=== PATIENT | female | born 1980 | race Caucasian/White ===

== ENCOUNTER 2019-12-13 05:41 | Emergency (ER) | payer MEDICAID, OTHER ==
[~2019-12-13] VITALS: Ht 167.6 cm; Wt 117.9 kg
[~2019-12-13 05:41] MED LIST: ATEN-60; DIVA125T12; LEVO25TA6; QUET25TA37; TOPI25TA32
[2019-12-13 06:18] VITALS: BP 124/75
== END 2019-12-13 07:02 | disposition left against medical advice (07) ==
LOC: ER 05:41
DX: M79.89 Other specified soft tissue disorders (principal); Z53.21 Procedure and treatment not carried out due to patient leaving prior to being seen by health care provider

== ENCOUNTER 2021-04-06 10:20 | Emergency (ER) | payer MEDICAID ==
[~2021-04-06] VITALS: Ht 167.6 cm; Wt 113.4 kg
[~2021-04-06 10:20] MED LIST changes: -TOPI25TA32; +TOPI25TA43
[2021-04-06 10:31] VITALS: BP 153/71
[2021-04-06] MEDS ORDERED: SODIUM CHLORIDE 0.9% 1,000 ML IVB ONE (11:30)
[2021-04-06] MEDS ORDERED: PANTOPRAZOLE 40 MG/10 ML VIAL INJ IV ONE (11:30)
[2021-04-06] MEDS ORDERED: ONDANSETRON HCL 4 MG/2 ML VIAL IV ONE (11:30)
[2021-04-06 13:38] LABS: Urine Bacteria NONE SEEN /hpf (None Seen); Urine Blood Negative /uL (Negative); Urine Mucus FEW (None Seen); Urine Specific Gravity 1.034 (1.001-1.035); Urine WBC 2 /hpf (0 - 5)
== END 2021-04-06 14:59 | disposition home or self-care (01) ==
LOC: ER 10:20
DX: R10.13 Epigastric pain (principal); F12.188 Cannabis abuse with other cannabis-induced disorder; J45.909 Unspecified asthma, uncomplicated; I10 Essential (primary) hypertension; F17.210 Nicotine dependence, cigarettes, uncomplicated
CPT/HCPCS: 81001

== ENCOUNTER 2021-09-10 11:49 | Inpatient (IN) | payer MEDICAID ==
[~2021-09-10] VITALS: Ht 167.6 cm; Wt 111.4 kg
[~2021-09-10 11:49] MED LIST changes: -ATEN-60; +ATEN-60 PO
[2021-09-10] MEDS ORDERED: PANTOPRAZOLE 40 MG/10 ML VIAL INJ IV ONE (12:15)
[2021-09-10] MEDS ORDERED: PROCHLORPERAZINE EDISYLATE 5 MG/ML 2ML VIAL IV ONE (12:15)
[2021-09-10] MEDS ORDERED: SODIUM CHLORIDE 0.9% 1,000 ML IVB ONE (12:15)
[2021-09-10] MEDS ORDERED: MORPHINE SULFATE 4 MG/ML SYR/VIAL IV ONE (12:15)
[2021-09-10 13:35] LABS: Basophils # (auto) 0.1 10 ^3/uL (0-0.2); Basophils % (auto) 0.4 % (0.0-2.0); Eosinophils # (auto) 0.1 10 ^3/uL (0-0.8); Eosinophils % (auto) 0.4 % (0.0-7.0); Hematocrit 47.4 % (36.0-46.0); Hemoglobin 16.4 g/dL (12.2-16.2); Lymphocytes # (auto) 3.7 10 ^3/uL (0.4-5.4); Lymphocytes % (auto) 28.5 % (10.0-50.0); Mean Corpuscular Hemoglobin 30.8 pg (28.0-32.0); Mean Corpuscular Hgb Conc. 34.5 g/dL (32.0-36.0); Mean Corpuscular Volume 89.3 fL (80.0-100.0); Monocytes # (auto) 1.2 10 ^3/uL (0-1.3); Monocytes % (auto) 8.9 % (0.0-12.0); Neutrophils # (auto) 8.1 10 ^3/uL (1.6-8.6); Neutrophils % (auto) 61.8 % (37.0-80.0); Nucleated Red Blood Cells % 0.1 %; Red Blood Cells 5.31 10^6/uL (4.0-5.20); White Blood Cell 13.1 10^3/uL (4.4-10.8)
[2021-09-10 13:55] LABS: Albumin 4.4 g/dL (3.4-5.0); Magnesium 2.4 mg/dL (1.6-2.6)
[2021-09-10 13:59] LABS: BUN/Creatinine Ratio 16.9; Bilirubin, Total 2.2 mg/dL (0.2-1.0); Total Protein 8.4 g/dL (6.4-8.2)
[2021-09-10 15:04] LABS: Potassium 2.2 mmol/L (3.5-5.1)
[2021-09-10] MEDS ORDERED: POTASSIUM CHL 20 Meq TABLET PO ONE ×2 (15:15→22:30)
[2021-09-10] MEDS: POTASSIUM CHL 20MEQ/100ML 100 ML IV SCH (18:52)
[2021-09-10] MEDS ORDERED: POTASSIUM CHL 20MEQ/100ML 100 ML IV SCH (21:45)
[2021-09-10] MEDS ORDERED: ACETAMINOPHEN 325 MG TAB PO PRN (22:30)
[2021-09-10] MEDS ORDERED: MORPHINE SULFATE INJECTION 2 MG/ML SYRG IV PRN (22:30)
[2021-09-10] MEDS ORDERED: hydrALAZINE HCL 10 MG TAB PO PRN (22:30)
[2021-09-11] MEDS: SODIUM CHLORIDE 0.9% 1,000 ML IV SCH ×2 (00:20→09:56)
[2021-09-11] MEDS: ONDANSETRON HCL 4 MG/2 ML VIAL IV PRN ×2 (00:37→19:52)
[2021-09-11 01:12] LABS: Urine Blood Trace /uL (Negative); Urine Specific Gravity 1.022 (1.001-1.035)
[2021-09-11 01:17] LABS: Urine WBC 4 /hpf (0 - 5); Urine WBC Clumps NONE SEEN /hpf (None Seen)
[2021-09-11 01:18] LABS: Urine Bacteria NONE SEEN /hpf (None Seen)
[2021-09-11] MEDS ORDERED: POTASSIUM CHL 20MEQ/100ML 100 ML IV ONE (02:12)
[2021-09-11] MEDS: POTASSIUM CHL 20MEQ/100ML 100 ML IV SCH (02:20)
[2021-09-11 05:47] LABS: Basophils # (auto) 0 10 ^3/uL (0-0.2); Basophils % (auto) 0.3 % (0.0-2.0); Eosinophils # (auto) 0.1 10 ^3/uL (0-0.8); Eosinophils % (auto) 0.8 % (0.0-7.0); Hematocrit 38.2 % (36.0-46.0); Hemoglobin 13.5 g/dL (12.2-16.2); Lymphocytes # (auto) 3.2 10 ^3/uL (0.4-5.4); Lymphocytes % (auto) 29.6 % (10.0-50.0); Mean Corpuscular Hemoglobin 31.6 pg (28.0-32.0); Mean Corpuscular Hgb Conc. 35.2 g/dL (32.0-36.0); Mean Corpuscular Volume 89.8 fL (80.0-100.0); Monocytes % (auto) 9.3 % (0.0-12.0); Neutrophils # (auto) 6.4 10 ^3/uL (1.6-8.6); Nucleated Red Blood Cells % 0.1 %; Red Blood Cells 4.26 10^6/uL (4.0-5.20); Red Cell Distribution Width 14.1 % (11.8-14.3); White Blood Cell 10.7 10^3/uL (4.4-10.8)
[2021-09-11 06:01] LABS: BUN/Creatinine Ratio 16.5; Calcium 8.4 mg/dL (8.5-10.1)
[2021-09-11 07:30] LABS: Potassium 2.5 mmol/L (3.5-5.1)
[2021-09-11] MEDS ORDERED: PANTOPRAZOLE 40 MG/10 ML VIAL INJ IV SCH (10:00)
[2021-09-11] MEDS: SOD CHL 0.9%/ KCL 40MEQ 1,000 ML IV SCH ×3 (12:08→23:35)
[2021-09-11] MEDS ORDERED: POTASSIUM EFFERVESENT TAB 25 MEQ PO ONE (12:15)
[2021-09-11 12:39] LABS: Protein, Urine 16.4 mg/dL (0.0-11.9)
[2021-09-11] MEDS ORDERED: POTASSIUM CHL 20 Meq TABLET PO ONE (13:45)
[2021-09-11] MEDS: HYDROcodone-ACET 5/325MG TAB PO PRN (14:43)
[2021-09-11] MEDS ORDERED: ARIP1TAB7 PO (18:22)
[2021-09-11] MEDS ORDERED: BUSP15TA60 PO (18:22)
[2021-09-11] MEDS ORDERED: TRAZ100T3 PO (18:22)
[2021-09-11] MEDS ORDERED: ESCI-34 PO (18:22)
[2021-09-11 22:00] VITALS: BP 158/80
[2021-09-11] MEDS ORDERED: HEPARIN SODIUM (PORCINE) 5000 UNITS/ML 1ML VIAL SC SCH (22:00)
[2021-09-11] MEDS ORDERED: traZODone HCL 50 MG TAB PO SCH (22:00)
[2021-09-12] MEDS: ONDANSETRON HCL 4 MG/2 ML VIAL IV PRN (01:36)
[2021-09-12 04:33] LABS: Basophils # (auto) 0 10 ^3/uL (0-0.2); Basophils % (auto) 0.5 % (0.0-2.0); Eosinophils # (auto) 0.1 10 ^3/uL (0-0.8); Eosinophils % (auto) 1.5 % (0.0-7.0); Hematocrit 36.2 % (36.0-46.0); Hemoglobin 12.4 g/dL (12.2-16.2); Lymphocytes # (auto) 2.5 10 ^3/uL (0.4-5.4); Lymphocytes % (auto) 32.6 % (10.0-50.0); Mean Corpuscular Hemoglobin 31.1 pg (28.0-32.0); Mean Corpuscular Hgb Conc. 34.3 g/dL (32.0-36.0); Mean Corpuscular Volume 90.5 fL (80.0-100.0); Monocytes # (auto) 0.6 10 ^3/uL (0-1.3); Monocytes % (auto) 8.1 % (0.0-12.0); Neutrophils # (auto) 4.4 10 ^3/uL (1.6-8.6); Neutrophils % (auto) 57.3 % (37.0-80.0); Nucleated Red Blood Cells % 0.1 %; Red Blood Cells 3.99 10^6/uL (4.0-5.20); Red Cell Distribution Width 13.5 % (11.8-14.3); White Blood Cell 7.8 10^3/uL (4.4-10.8)
[2021-09-12 04:42] LABS: Calcium 8.3 mg/dL (8.5-10.1); Potassium 3.2 mmol/L (3.5-5.1)
[2021-09-12 05:00] VITALS: BP 164/89
[2021-09-12] MEDS: HYDROcodone-ACET 5/325MG TAB PO PRN (06:19)
[2021-09-12 09:00] VITALS: BP 133/77
== END 2021-09-12 09:22 | disposition left against medical advice (07) | DRG 469 ==
LOC: ER 11:49 → TELE 22:19 → TELE-EAST 09-11 15:42
PROVIDERS: ADMIT Nurse Practitioner Family; ATTEND Nurse Practitioner Family
DX: N17.9 Acute kidney failure, unspecified (principal); E87.1 Hypo-osmolality and hyponatremia; E87.3 Alkalosis; F12.90 Cannabis use, unspecified, uncomplicated; E86.0 Dehydration; E66.01 Morbid (severe) obesity due to excess calories; E87.6 Hypokalemia; F17.210 Nicotine dependence, cigarettes, uncomplicated; F31.9 Bipolar disorder, unspecified; I10 Essential (primary) hypertension; J45.909 Unspecified asthma, uncomplicated; Z20.822 Contact with and (suspected) exposure to COVID-19; N20.0 Calculus of kidney; E87.5 Hyperkalemia; G47.30 Sleep apnea, unspecified; Z53.29 Procedure and treatment not carried out because of patient's decision for other reasons; Z87.11 Personal history of peptic ulcer disease; Z68.39 Body mass index [BMI] 39.0-39.9, adult
CPT/HCPCS: 36415; 74176; 76705; 80048; 80053; 81001; 82150; 82570; 83690; 83735; 84100; 84156; 84300; 84702; 85025; 93005; 96361; 96365; 96366; 96375; 96376; C9113; G0378; J2405; J3480

== ENCOUNTER → 2023-05-22 | Outpatient (CLI) | payer MEDICAID ==
[~2023-05-22] MED LIST changes: +ARIP1TAB7 PO; +BUSP15TA60 PO; -DIVA125T12; +ESCI1TAB37 PO; -LEVO25TA6; -QUET25TA37; -TOPI25TA43; +TRAZ-228 PO
== END | disposition home or self-care (01) ==
LOC: XYW 07:32
DX: R11.2 Nausea with vomiting, unspecified (principal)
CPT/HCPCS: 78264; A9541

== ENCOUNTER 2023-07-15 06:01 | Inpatient (IN) | payer MEDICAID ==
[~2023-07-15] VITALS: Ht 167.6 cm; Wt 99.0 kg
[2023-07-15 07:23] LABS: Basophils # (auto) 0.1 10 ^3/uL (0-0.2); Basophils % (auto) 0.5 % (0.0-2.0); Eosinophils # (auto) 0 10 ^3/uL (0-0.8); Eosinophils % (auto) 0.1 % (0.0-7.0); Hematocrit 49.2 % (36.0-46.0); Hemoglobin 16.5 g/dL (12.2-16.2); Lymphocytes # (auto) 2.6 10 ^3/uL (0.4-5.4); Lymphocytes % (auto) 18.4 % (10.0-50.0); Mean Corpuscular Hemoglobin 29.7 pg (28.0-32.0); Mean Corpuscular Hgb Conc. 33.5 g/dL (32.0-36.0); Mean Corpuscular Volume 88.5 fL (80.0-100.0); Monocytes # (auto) 1.1 10 ^3/uL (0-1.3); Neutrophils # (auto) 10.3 10 ^3/uL (1.6-8.6); Nucleated Red Blood Cells % 0.1 %; Red Blood Cells 5.56 10^6/uL (4.0-5.20); White Blood Cell 14.1 10^3/uL (4.4-10.8)
[2023-07-15 07:27] LABS: Urine Bacteria FEW /hpf (None Seen); Urine Blood Negative /uL (Negative); Urine Clarity CLOUDY (Clear); Urine Color Orange (Yellow); Urine Hyaline Cast FEW /lpf (0 - 2); Urine Mucus FEW (None Seen); Urine Protein, UAD 2+ (Negative); Urine WBC 19 /hpf (0 - 5)
[2023-07-15 07:39] LABS: Alanine Aminotransferase 174 U/L (7-40); Albumin 5.4 g/dL (3.2-4.8); Alkaline Phosphatase 79 U/L (46-116); Anion Gap 16 (5-15); Aspartate Aminotransferase 126 U/L (13-40); BUN/Creatinine Ratio 18.5 (10.0-20.0); Bilirubin, Total 3.6 mg/dL (0.2-1.0); Blood Urea Nitrogen 24 mg/dL (9-23); Calcium 10.6 mg/dL (8.5-10.1); Carbon Dioxide 36 mmol/L (20-30); Chloride 79 mmol/L (98-107); Glucose 171 mg/dL (74-106); Sodium 131 mmol/L (136-145); Total Protein 8.3 g/dL (5.7-8.2)
[2023-07-15] MEDS: SODIUM CHLORIDE 0.9% 1,000 ML IV ONE ×2 (07:39→10:46)
[2023-07-15 07:40] LABS: Amphetamine Screen, Urine Neg (NEGATIVE); Barbiturate Scree,Urine Neg (NEGATIVE); Benzodiazephine Screen, Urine Neg (NEGATIVE)
[2023-07-15] MEDS: PROCHLORPERAZINE EDISYLATE 5 MG/ML 2ML VIAL IV ONE (07:40)
[2023-07-15 07:41] LABS: Cannabinoid Screen, Urine Pos (NEGATIVE); Cocaine Screen, Urine Neg (NEGATIVE); Opiate Scree,Urine Neg (NEGATIVE); Phencyclidine Screen, Urine Neg (NEGATIVE)
[2023-07-15 07:46] LABS: Potassium 2.2 mmol/L (3.5-5.1)
[2023-07-15] MEDS ORDERED: POTASSIUM CHL 20MEQ/100ML 100 ML IV SCH (08:00)
[2023-07-15 08:31] VITALS: RESP 18; O2SAT 97
[2023-07-15] MEDS ORDERED: SODIUM CHLORIDE 0.9% 1,000 ML IV SCH (10:15)
[2023-07-15] MEDS ORDERED: MORPHINE SULFATE INJ 2 MG/ml SYRG IV PRN (10:15)
[2023-07-15] MEDS ORDERED: NITROGLYCERIN 0.4 MG SL TAB SL PRN (10:15)
[2023-07-15] MEDS ORDERED: ONDANSETRON HCL 4 MG/2 ML VIAL IV PRN (10:15)
[2023-07-15] MEDS ORDERED: ACETAMINOPHEN 325 MG TAB PO PRN (10:15)
[2023-07-15] MEDS: POTASSIUM EFFERVESENT TAB 25 MEQ PO ONE (10:44)
[2023-07-15] MEDS: SUCRALFATE 1 GM/10 ML ORAL SUSP PO ONE (10:44)
[2023-07-15] MEDS: cefTRIAXone 1GM/50ML D5W 50 ML IV ONE (10:45)
[2023-07-15] MEDS: PANTOPRAZOLE 40 MG/10 ML VIAL INJ IV ONE (10:46)
[2023-07-15 10:52] VITALS: BP 144/80; PULSE 101; RESP 17; TEMP 98.2; O2SAT 95
[2023-07-15 11:07] LABS: Hepatitis B Surface Antigen Negative (Negative)
[2023-07-15 11:17] LABS: Magnesium 2.1 mg/dL (1.6-2.6)
[2023-07-15 11:27] LABS: Hepatitis A Ab IgM Negative
[2023-07-15 11:28] LABS: Hepatitis B Core IgM Negative
[2023-07-15 11:29] LABS: Hepatitis C Antibody Negative (Negative)
[2023-07-15] MEDS ORDERED: SUCRALFATE 1 GM/10 ML ORAL SUSP PO SCH (11:30)
[2023-07-15] MEDS ORDERED: traZODone HCL 50 MG TAB PO SCH (22:00)
[2023-07-15] MEDS ORDERED: ARIPIPRAZOLE PO SCH (22:00)
[2023-07-15] MEDS ORDERED: busPIRone HCL 10 MG TAB PO SCH (22:00)
[2023-07-16] MEDS ORDERED: cefTRIAXone 1GM/50ML D5W 50 ML IV SCH (09:00)
[2023-07-16] MEDS ORDERED: ATENOLOL 25 MG TAB PO SCH (10:00)
[2023-07-16] MEDS ORDERED: PANTOPRAZOLE 40 MG/10 ML VIAL INJ IV SCH (10:00)
[2023-07-16] MEDS ORDERED: CITALOPRAM HYDROBR 20 MG TAB PO SCH (10:00)
== END 2023-07-15 13:37 | disposition left against medical advice (07) | DRG 426 ==
LOC: ER 06:01 → TELE 10:15
PROVIDERS: ADMIT Nurse Practitioner Family; ATTEND Nurse Practitioner Family
DX: E87.1 Hypo-osmolality and hyponatremia (principal); N17.0 Acute kidney failure with tubular necrosis; E87.6 Hypokalemia; N30.00 Acute cystitis without hematuria; K76.0 Fatty (change of) liver, not elsewhere classified; I10 Essential (primary) hypertension; E03.9 Hypothyroidism, unspecified; F17.210 Nicotine dependence, cigarettes, uncomplicated; F20.9 Schizophrenia, unspecified; J45.909 Unspecified asthma, uncomplicated; R73.9 Hyperglycemia, unspecified; E66.01 Morbid (severe) obesity due to excess calories; Z79.899 Other long term (current) drug therapy; Z87.11 Personal history of peptic ulcer disease; Z68.35 Body mass index [BMI] 35.0-35.9, adult
CPT/HCPCS: 36415; 74176; 76705; 80053; 80061; 80074; 80307; 81001; 81025; 82248; 83036; 83735; 84443; 85025; 87086; 96360; C9113; G0378

== ENCOUNTER 2024-07-19 21:27 | Inpatient (IN) | payer MEDICARE, MEDICAID ==
[~2024-07-19] VITALS: Ht 162.6 cm; Wt 89.7 kg
[~2024-07-19 21:27] MED LIST changes: -ARIP1TAB7 PO; +ARIP20TA4 PO; -ATEN-60 PO; +OXYC5SOL PO; -TRAZ-228 PO
[2024-07-19 22:56] LABS: Basophils # (auto) 0 10 ^3/uL (0-0.2); Basophils % (auto) 0.2 % (0.0-2.0); Eosinophils # (auto) 0 10 ^3/uL (0-0.8); Hematocrit 44.8 % (36.0-46.0); Hemoglobin 15.8 g/dL (12.2-16.2); Lymphocytes # (auto) 1.2 10 ^3/uL (0.4-5.4); Lymphocytes % (auto) 17.7 % (10.0-50.0); Mean Corpuscular Hemoglobin 31.1 pg (28.0-32.0); Mean Corpuscular Hgb Conc. 35.3 g/dL (32.0-36.0); Mean Corpuscular Volume 87.9 fL (80.0-100.0); Monocytes # (auto) 0.4 10 ^3/uL (0-1.3); Monocytes % (auto) 5.9 % (0.0-12.0); Neutrophils % (auto) 76.2 % (37.0-80.0); Platelet Count (auto) 243 10^3/uL (140-450); Red Cell Distribution Width 14.7 % (11.8-14.3); White Blood Cell 6.6 10^3/uL (4.4-10.8)
[2024-07-19] MEDS: METOCLOPRAMIDE HCL 5MG/ml INJ 2ml VIAL IV ONE (22:59)
[2024-07-19] MEDS: SODIUM CHLORIDE 0.9% 1,000 ML IV ONE (22:59)
[2024-07-19 23:02] LABS: Alanine Aminotransferase 20 U/L (7-40); Alkaline Phosphatase 63 U/L (46-116); Anion Gap 16 (5-15); Aspartate Aminotransferase 24 U/L (13-40); BUN/Creatinine Ratio 15.1 (10.0-20.0); Blood Urea Nitrogen 11 mg/dL (9-23); Carbon Dioxide 23 mmol/L (20-31); Chloride 100 mmol/L (98-107); Lipase 29 U/L (12-53); Sodium 139 mmol/L (136-145); Total Protein 8.2 g/dL (5.7-8.2)
[2024-07-19 23:03] LABS: Bilirubin, Total 0.7 mg/dL (0.2-1.0)
[2024-07-19 23:05] LABS: Albumin 5.2 g/dL (3.2-4.8); Calcium 10.7 mg/dL (8.7-10.4); Glucose 161 mg/dL (74-106); Potassium 3.3 mmol/L (3.5-5.1)
--- NOTE | 2024-07-19 23:42 | DVH ---
CT SCAN ABDOMEN AND PELVIS WITHOUT CONTRAST CLINICAL HISTORY: luq/llq abd px TECHNIQUE: Helical axial images are obtained from the lung bases through the pelvis without oral cont rast. No intravenous contrast was administered. Coronal and sagittal reformatted images were generate d from thin section reconstructions. One or more of the following radiation dose reduction techniques were used for this examination: automated exposure control, adjustment of the mA and/or kV according to patient size, use of iterative reconstruction technique. COMPARISON: CT CT AB PEL WO CON-NO ORAL OR IV on DOS: 07/15/23 FINDINGS: LOWER THORAX: Imaged lung bases are grossly clear. ABDOMEN AND PELVIS: Evaluation of visceral and vascular structures is limited due to lack of contrast administration. As visualized, the unenhanced liver, spleen, pancreas and adrenals appear grossly unremarkable. Possi ble layering sludge in the gallbladder. No sizable, radiopaque cholelithiasis or biliary ductal dilat ation. Punctate nonobstructing left lower pole nephrolithiasis again noted. No hydroureteronephrosis or siz able, obstructing urinary tract calculi identified at this time. No evidence of abdominal aortic aneurysm. No evidence of bowel obstruction. Normal caliber appendix. Thickening versus underdistention of the a scending and transverse colon. No free intraperitoneal air or fluid identified. No sizable bladder calculus. Cystic bilateral adnexal prominence is now noted. No destructive osseous lesions identified. Degenerative changes of the lower lumbar spine. IMPRESSION: Thickening versus underdistention of the ascending and transverse colon. Correlate for possible coli tis. Cystic prominence of the bilateral adnexa is now noted. Ultrasound may be obtained to further evaluat e. A few other unchanged findings as above.
[2024-07-19 23:49] VITALS: PULSE 98; RESP 17; O2SAT 100
--- NOTE | 2024-07-19 23:59 | ED.PDOC ---
GI ASSESSMENT HPI Comments Pt presents to ED d/t N/V x4 years. Pt states she has never been diagnosed and this is "normal", but came in today d/t pain. Pt currently drinking cup of ice water, advised pt to discontinue intake. Pt states, "this is the only thing that works and helps my potassium." . Patient also reports upper and lower left quadrant abdominal pain describes as sharp and cramping 8/10 on pain scale. She notes intermittent diarrhea over the past six days. Denies chest pain, dizziness, difficulty breathing, recent travel, recent ill contacts. Chief Complaint: Nausea/Vomiting Time Seen by MD: 22:00 Primary Care Provider: TERRI Reviewed Notes: Nurses Notes, Medications, Allergies Allergies: Coded Allergies: NO KNOWN ALLERGIES (Unverified , 02/17/10) Home Meds Reported Medications Oxycodone HCl (Oxycodone Hydrochloride) 5 Mg/5 Ml Rhea, 5 ML PO PRN, ML 06/30/25 Buspirone Hcl (Buspirone Hcl) 15 Mg Tab, 30 MG PO Q12HR for 30 Days 09/11/21 Escitalopram Oxalate (ESCITALOPRAM OXALATE) 20 Mg Tab, 1 TAB PO DAILY, #30 TAB 5 Refills 09/11/21 Aripiprazole (Abilify) 20 Mg Tab, 35 MG PO HS, TAB 09/11/21 Mode of Arrival: Wheelchair Past Medical History PAST MEDICAL HISTORY: Asthma, HTN, PUD, Schizophrenia, Thyroid Surgical History: Denies all surgeries [employer] History: No Pertinent [employer] History Family History Family History: Family hx of Cancer Social History Smoker: Cigarettes Alcohol: Denies ETOH Use Drugs: Marijuana Lives In: Home Constitutional: denies: chills, diaphoresis, fatigue, fever, malaise, sweats, weakness, others EENTM: denies: blurred vision, double vision, ear bleeding, ear discharge, ear drainage, ear pain, ear ringing, eye pain, eye redness, hearing loss, mouth pain, mouth swelling, nasal discharge, nose bleeding, nose congestion, nose pain, photophobia, tearing, throat pain, throat swelling, voice changes, others Respiratory: denies: cough, hemoptysis, orthopnea, SOB at rest, shortness of breath, SOB with excertion, stridor, wheezing, others Cardiovascular: denies: chest pain, dizzy spells, diaphoresis, Dyspnea on exertion, edema, irregular heart beat, left arm pain, lightheadedness, palpitations, PND, syncope, others Gastrointestinal: reports: abdominal pain, diarrhea, nausea, vomiting; denies: abdomen distended, blood streaked bowels, constipated, dysphagia, difficulty swallowing, hematemesis, melena, poor appetite, poor fluid intake, rectal bleeding, rectal pain, others Genitourinary: denies: abnormal vagina bleeding, burning, dyspareunia, dysuria, flank pain, frequency, hematuria, incontinence, pain, , vagina discharge, urgency, others Neurological: denies: dizziness, fainting, headache, left sided numbness, left sided weakness, numbness, paresthesia, pre-existing deficit, right sided numbness, right sided weakness, seizure, speech problems, tingling, tremors, weakness, others Musculoskeletal: denies: back pain, gout, joint pain, joint swelling, muscle pain, muscle stiffness, neck pain, others Integumetry: denies: bruises, change in color, change in hair/nails, dryness, laceration, lesions, lumps, rash, wounds, others Allergic/Immunocompromised: denies: Difficulty Healing, Frequent Infections, Hives, Itching, others Hematologic/Lymphatic: denies: anemia, blood clots, easy bleeding, easy bruising, swollen glands, others Endocrine: denies: excessive hunger, excessive sweating, excessive thirst, excessive urination, flushing, intolerance to cold, intolerance to heat, unexplained weight gain, unexplained weight loss, others Psychiatric: denies: anxiety, bipolar disorder, depression, hopeless, panic disorder, schizophrenia, sleepless, suicidal, others Physical Exam General Appearance: No Apparent Distress, Normal HEENT: Normal ENT Inspection, Pharynx Normal Neck: Full Range of Motion, Non-Tender Respiratory: Lungs Clear, No Respiratory Distress, Normal Breath Sounds Cardiovascular: No Edema, No JVD, No Murmur, No Gallop, Normal Peripheral Pulses, Regular Rate/Rhythm Breast Exam: Deferred Gastrointestinal: No Organomegaly, No Pulsatile Mass, Normal Bowel Sounds, Soft, Tenderness (Left upper and lower quadrant abdomen) Genitalia: Deferred Pelvic: Deferred Rectal: Deferred Extremities: No calf tenderness, Normal capillary refill, Normal inspection, Normal range of motion, Non-tender, No pedal edema Musculoskeletal : Apperance: Normal Neurologic: Alert, cash accountant II-XII nml as Tested, No Motor Deficits, Normal Affect, Normal Mood, No Sensory Deficits Cerebellar Function: Normal Reflexes: Normal Skin: Dry, Normal Color, Warm Lymphatic: No Adenopathy Was a procedure done? Was a procedure done?: No GI differential Dx Differential Diagnosis: Bowel Obstruction, Cholangitis, Cholecystitis, Constipation, Gastritis/PUD, Gastroenteritis, Inflammatory BD, Ovarian cyst/torsion, UTI, Electrolyte Imbalance, Food Poisoning, Bacterial, Parasitic X-Ray, Labs, Meds, VS Vital Signs Date Time Temp Pulse Resp B/P (MAP) Pulse Ox O2 Delivery O2 Flow Rate FiO2 07/20/24 02:33 89 19 127/89 07/20/24 00:54 82 18 130/86 07/19/24 23:49 98 17 100 Room Air* 0 21 07/19/24 22:46 98.9 101 19 138/80 (99) 100 98.9 07/19/24 21:27 99.0 96 18 148/58 (88) 99 99.0 Lab Test 07/19/24 22:30 Range/Units White Blood Count 6.6 4.4-10.8 10^3/uL Red Blood Count 5.10 4.0-5.20 10^6/uL Hemoglobin 15.8 12.2-16.2 g/dL Hematocrit 44.8 36.0-46.0 % Mean Corpuscular Volume 87.9 80.0-100.0 fL Mean Corpuscular Hemoglobin 31.1 28.0-32.0 pg Mean Corpuscular Hemoglobin Concent 35.3 32.0-36.0 g/dL Red Cell Distribution Width 14.7 H 11.8-14.3 % Platelet Count 243 140-450 10^3/uL Mean Platelet Volume 8.1 6.9-10.8 fL Neutrophils (%) (Auto) 76.2 37.0-80.0 % Lymphocytes (%) (Auto) 17.7 10.0-50.0 % Monocytes (%) (Auto) 5.9 0.0-12.0 % Eosinophils (%) (Auto) 0.0 0.0-7.0 % Basophils (%) (Auto) 0.2 0.0-2.0 % Neutrophils # (Auto) 5.0 1.6-8.6 10 ^3/uL Lymphocytes # (Auto) 1.2 0.4-5.4 10 ^3/uL Monocytes # (Auto) 0.4 0-1.3 10 ^3/uL Eosinophils # (Auto) 0 0-0.8 10 ^3/uL Basophils # (Auto) 0 0-0.2 10 ^3/uL Nucleated Red Blood Cells 0.0 % Sodium Level 139 136-145 mmol/L Potassium Level 3.3 L 3.5-5.1 mmol/L Chloride Level 100 98-107 mmol/L Carbon Dioxide Level 23 20-31 mmol/L Anion Gap 16 H 5-15 Blood Urea Nitrogen 11 9-23 mg/dL Creatinine 0.73 0.550-1.02 mg/dL Glomerular Filtration Rate Calc 105 >90 mL/min BUN/Creatinine Ratio 15.1 10.0-20.0 Serum Glucose 161 H 74-106 mg/dL Calcium Level 10.7 H 8.7-10.4 mg/dL Total Bilirubin 0.7 0.2-1.0 mg/dL Aspartate Amino Transferase (AST) 24 13-40 U/L Alanine Aminotransferase (ALT) 20 7-40 U/L Alkaline Phosphatase 63 46-116 U/L Total Protein 8.2 5.7-8.2 g/dL Albumin 5.2 H 3.2-4.8 g/dL Lipase 29 12-53 U/L Current Medications Medications (Trade) Dose Ordered Sig/Bridgette Route Start Time Stop Time Status Last Admin Metoclopramide HCl (Reglan Injection) 5 mg ONCE ONCE IV 07/19/24 22:15 07/19/24 22:16 DC 07/19/24 22:59 Sodium Chloride 1,000 ml @ 1,000 mls/hr Q1H ONCE IV 07/19/24 22:15 07/19/24 23:14 DC 07/19/24 22:59 Morphine Sulfate 1 mg ONCE ONCE IV 07/20/24 00:00 07/20/24 00:01 DC 07/20/24 00:54 Cefazolin Sodium/ Dextrose 50 ml @ 50 mls/hr ONCE ONCE IV 07/20/24 00:15 07/20/24 01:14 DC 07/20/24 00:15 Ciprofloxacin 200 ml @ 200 mls/hr ONCE ONCE IV 07/20/24 00:15 07/20/24 01:01 DC 07/20/24 00:54 Diphenhydramine HCl (Benadryl Injection) 25 mg ONCE ONCE IV 07/20/24 01:00 07/20/24 01:02 DC 07/20/24 01:51 Metronidazole 100 ml @ 100 mls/hr ONCE ONCE IV 07/20/24 01:15 07/20/24 02:14 DC 07/20/24 01:51 X-Ray, Labs, Meds, VS Comment ABDOMEN AND PELVIS: Evaluation of visceral and vascular structures is limited due to lack of contrast administration. As visualized, the unenhanced liver, spleen, pancreas and adrenals appear grossly unremarkable. Possible layering sludge in the gallbladder. No sizable, radiopaque cholelithiasis or biliary ductal dilatation. Punctate nonobstructing left lower pole nephrolithiasis again noted. No hydroureteronephrosis or sizable, obstructing urinary tract calculi identified at this time. No evidence of abdominal aortic aneurysm. No evidence of bowel obstruction. Normal caliber appendix. Thickening versus underdistention of the ascending and transverse colon. No free intraperitoneal air or fluid identified. No sizable bladder calculus. Cystic bilateral adnexal prominence is now noted. No destructive osseous lesions identified. Degenerative changes of the lower lumbar spine. LABS: CBC within normal limits CMP potassium 3.3 Lipase within normal limits UA UDS MEDICATIONS: REGLAN 5 MG IV MORPHINE 1 MG IV ANCEF 2 G IV PIGGYBACK Flagyl 500 mg IV piggyback NS 1000 mL bolus PLAN: Admission placed for hospitalist diagnosis colitis, intractable emesis, intractable abdominal pain. Time of 1ST Reevaluation: 00:56 Reevaluation 1ST: Unchanged Patient Education/Counseling: Diagnosis, Treatment, Prognosis Family Education/Counseling: Diagnosis, Treatment, Prognosis, Need For Follow Up Departure 1 Departure Time of Disposition: 00:12 Impression: Primary Impression: Colitis Additional Impressions: Intractable abdominal pain Intractable vomiting with nausea Disposition: HOME / SELF CARE / HOMELESS Condition: Stable Discharged With: Significant Other Critical Care Note Critical Care Time?: No Stability Stability form required: CHONG Laws Jul 19, 2024 23:59
[2024-07-20] MEDS: ceFAZolin 2 GM/D5W50ml 50 ML IV ONE (00:15)
[2024-07-20] MEDS: MORPHINE SULFATE INJ 2 MG/ml SYRG IV ONE (00:54)
[2024-07-20] MEDS: CIPROFLOXACIN 400MG/200ML 200 ML IV ONE (00:54)
[2024-07-20] MEDS: diphenhdrAMINE HCL 50 MG/1 ML VL IV ONE (01:51)
[2024-07-20] MEDS: metroNIDAZOLE 500MG/100ML 100 ML IV ONE ×2 (01:51→06:54)
[2024-07-20] MEDS ORDERED: DICYCLOMINE HCL 10 MG CAP PO PRN (03:00)
[2024-07-20] MEDS ORDERED: HYDROcodone-ACET 5/325MG TAB PO PRN (03:00)
[2024-07-20] MEDS ORDERED: ONDANSETRON HCL 4 MG/2 ML VIAL IV PRN ×2 (03:00)
[2024-07-20] MEDS ORDERED: ACETAMINOPHEN 325 MG TAB PO PRN (03:00)
--- NOTE | 2024-07-20 03:09 | DVHHPRES ---
History of Present Illness Resident Creating Document: TOM PALENCIA RESDIENT History of Present Illness This is a 44-year-old female with past medical history of asthma, sleep apnea, bipolar, and hypertension came to the hospital due to vomiting and diarrhea since 4 days. She also reports cough, intermittent diarrhea and constipation, decreased oral intake, dysphagia, odynophagia, dyschezia, rectal bleeding (during wiping), and an episode of bloody vomiting (vomited a blood clot). Per patient she has episodes of these symptoms since 4 years which occurs every 6 w eeks, lasts for 2 weeks and due to persistent vomiting developed hypokalemia. She had a colonoscopy and upper GI endoscopy 10 years back which were normal. Patient sees a pain management doctor for neuropathic pain and a psychiatrist for psychiatric problems (last visit was 2 months back). PMHx: asthma, sleep apnea, bipolar, and hypertension , neuropathic pain PSHx: Noncontributory Family history: Noncontributory Social history: Patient lives in a snf, denies smoking or any other drug use Home medication: Patient was previously prescribed trazodone, Seroquel but non adherence to medicine Allergic history: No known allergy Review of Systems Review of Systems General: Patient reports decreased oral intake HEENT: No headaches, visiual changes, hearing loss, tinnitus, nasal congestion and discharge, and sore throat. Cardiovascular: Denies chest pain, palpitations, dyspnea on exertion, orthopnea, or claudication. Respiratory: Reports Cough Gastrointestinal: Reports dysphagia, odynophagia, abdominal pain, diarrhea, con stipation, dyschezia, Genitourinary: No dysuria, hematuria, discharge, frequency, urgency, nocturia, incontinence, and urinary retention. Endocrine: No heat or cold intolerance, polydipsia, polyuria, and polyphagia. Neurological: No dizziness, extremity weakness and numbness, tremors, gait disturbance, seizures, and memory impairment. Psychiatric: Denies depression, anxiety,or insomnia. Musculoskeletal: Denies neck pain, stiffness and swelling, back pain, muscle weakness, joint pain, stiffness, swelling, or limited range of motion. Skin: No rashes, itching, skin lesion, changes in hair, nail, skin texture and breast. Hematologic/Lymphatic: Denies easy bruising, bleeding tendencies, or lymph node enlargement. Allergies: Coded Allergies: NO KNOWN ALLERGIES (Unverified , 02/17/10) Medications Current Medications Medications Dose Ordered Sig/Bridgette Route Start Time Stop Time Status Last Admin Dose Admin Acetaminophen 650 mg Q6HP PRN PO 07/20/24 03:00 UNV Acetaminophen/ Hydrocodone Bitart 1 tab Q4HP PRN PO 07/20/24 03:00 UNV Ondansetron HCl 4 mg Q4HP PRN IV 07/20/24 03:00 UNV Enoxaparin Sodium 40 mg DAILY SC 07/20/24 10:00 UNV Pantoprazole Sodium 40 mg DAILY IV 07/20/24 10:00 UNV Dicyclomine HCl 20 mg QID PRN PO 07/20/24 03:00 UNV Ondansetron HCl 4 mg Q4HPRN PRN IV 07/20/24 03:00 UNV Quetiapine Fumarate 25 mg BID PO 07/20/24 10:00 UNV Exam Vital Signs Vital Signs Date Time Temp Pulse Resp B/P (MAP) Pulse Ox O2 Delivery O2 Flow Rate FiO2 07/20/24 02:33 89 19 127/89 07/19/24 23:49 100 Room Air* 0 21 07/19/24 22:46 98.9 98.9 Exam General Appearance: Alert, Oriented X3, Cooperative, No acute distress HEENT: Atraumatic, PERRLA, EOMI, Mucous membrane moist/pink Respiratory: Clear to auscultation, Normal air movement Cardiovascular: Regular rate, Normal S1, Normal S2, No murmurs, no chest wall tenderness Abdominal: Increased bowel sounds, soft and nontender, no organomegaly Extremities: No clubbing, No cyanosis, No edema, Normal pulses, No tender ness/swelling Skin: No rashes, No breakdown, No significant lesion Neuro: Normal gait, Normal speech, Strength at 5/5 X4 ext, Normal tone, Sensation intact, Cranial nerves 3-12 NL, Reflexes 2+ Psych/Mental Status: Mental status NL, Mood NL Labs/Xrays Labs Test 07/19/24 22:30 Range/Units White Blood Count 6.6 4.4-10.8 10^3/uL Red Blood Count 5.10 4.0-5.20 10^6/uL Hemoglobin 15.8 12.2-16.2 g/dL Hematocrit 44.8 36.0-46.0 % Mean Corpuscular Volume 87.9 80.0-100.0 fL Mean Corpuscular Hemoglobin 31.1 28.0-32.0 pg Mean Corpuscular Hemoglobin Concent 35.3 32.0-36.0 g/dL Red Cell Distribution Width 14.7 H 11.8-14.3 % Platelet Count 243 140-450 10^3/uL Mean Platelet Volume 8.1 6.9-10.8 fL Neutrophils (%) (Auto) 76.2 37.0-80.0 % Lymphocytes (%) (Auto) 17.7 10.0-50.0 % Monocytes (%) (Auto) 5.9 0.0-12.0 % Eosinophils (%) (Auto) 0.0 0.0-7.0 % Basophils (%) (Auto) 0.2 0.0-2.0 % Neutrophils # (Auto) 5.0 1.6-8.6 10 ^3/uL Lymphocytes # (Auto) 1.2 0.4-5.4 10 ^3/uL Monocytes # (Auto) 0.4 0-1.3 10 ^3/uL Eosinophils # (Auto) 0 0-0.8 10 ^3/uL Basophils # (Auto) 0 0-0.2 10 ^3/uL Nucleated Red Blood Cells 0.0 % Sodium Level 139 136-145 mmol/L Potassium Level 3.3 L 3.5-5.1 mmol/L Chloride Level 100 98-107 mmol/L Carbon Dioxide Level 23 20-31 mmol/L Anion Gap 16 H 5-15 Blood Urea Nitrogen 11 9-23 mg/dL Creatinine 0.73 0.550-1.02 mg/dL Glomerular Filtration Rate Calc 105 >90 mL/min BUN/Creatinine Ratio 15.1 10.0-20.0 Serum Glucose 161 H 74-106 mg/dL Calcium Level 10.7 H 8.7-10.4 mg/dL Total Bilirubin 0.7 0.2-1.0 mg/dL Aspartate Amino Transferase (AST) 24 13-40 U/L Alanine Aminotransferase (ALT) 20 7-40 U/L Alkaline Phosphatase 63 46-116 U/L Total Protein 8.2 5.7-8.2 g/dL Albumin 5.2 H 3.2-4.8 g/dL Lipase 29 12-53 U/L Assessment/Plan Assessment/Plan Possible colitis Possible irritable bowel syndrome CT scan shows, thickening versus underdistention of the ascending and transverse colon, possible colitis Stool study Empiric antibiotic, ceftriaxone and Flagyl Dicyclomine Protonix clean History of asthma Sleep apnea Bipolar Hypertension Continue home meds DIET: NPO DVT PROPHYLAXIS: Lovenox GI PROPHYLAXIS:: Protonix CODE STATUS: Goal of care discussed for more than 18 minutes, full code DISPOSITION: Med/surge Patient's status and paln discussed with the patient Case discussed with Dr. Núñez. Plan discussed with: Patient, Other (RN) My Orders Orders - TOM PALENCIA RESMEHDI Procedure Category Date Status Time Admit ADMIT 07/20/24 Transmitted 02:54 Code Status CODE 07/20/24 Transmitted 02:54 Vital Signs FLORECITA 07/20/24 In Process 02:54 Review Orders With [facility] 07/20/24 In Process Adm. 02:54 Regular Diet DIET 07/20/24 Transmitted Breakfast Acetaminophen Tablet PHA 07/20/24 Logged (Tylenol Tablet) 03:00 Notify Of Changes [facility] 07/20/24 In Process From Base 02:54 Advance Directive [facility] 07/20/24 In Process 02:54 Basic Metabolic Panel LAB 07/20/24 Logged 02:54 Complete Blood Count LAB 07/20/24 Logged 02:54 Patient Condition ORDERS 07/20/24 Transmitted 02:54 Allergies FLORECITA 07/20/24 In Process 02:54 Hydrocodone-Acet PHA 07/20/24 Logged 5/325mg Tab ([place] 03:00 Ondansetron Hcl PHA 07/20/24 Logged (Zofran) 03:00 Enoxaparin Sodium PHA 07/20/24 Logged (Lovenox) 10:00 Stat Ekg For Chest FLORECITA 07/20/24 In Process Pain 02:54 Notify Of Changes [facility] 07/20/24 In Process From Base 02:54 Pantoprazole PHA 07/20/24 Logged (Protonix) 03:00 Pantoprazole PHA 07/20/24 Logged (Protonix) 10:00 Dicyclomine Capsule PHA 07/20/24 Logged (Bentyl Capsule) 03:00 Dicyclomine Capsule PHA 07/20/24 Logged (Bentyl Capsule) 03:00 Ondansetron Hcl PHA 07/20/24 Logged (Zofran) 03:00 Ondansetron Hcl PHA 07/20/24 Logged (Zofran) 03:00 Potassium Effervesent PHA 07/20/24 Logged Tab (Klor-Con/Ef) 03:00 Quetiapine Fumarate PHA 07/20/24 Logged Tablet (Seroquel Tab 03:00 Quetiapine Fumarate PHA 07/20/24 Logged Tablet (Seroquel Tab 10:00 Magnesium LAB 07/20/24 Logged 02:54 Beta Hcg, Quantitative LAB 07/20/24 Logged 02:54 Date of Service: Jul 20, 2024 Billing Provider: MED NÚÑEZ MD Common Visit Codes: [id number] INP/OBS CARE (HIGH) TOM PALENCIA RESDITERRI Jul 20, 2024 03:09 MED NÚÑEZ MD Jul 20, 2024 18:04
[2024-07-20] MEDS: PANTOPRAZOLE 40 MG/10 ML VIAL INJ IV ONE ×2 (03:30→12:56)
[2024-07-20] MEDS: POTASSIUM EFFERVESENT TAB 25 MEQ PO ONE (03:30)
[2024-07-20] MEDS: ONDANSETRON HCL 4 MG/2 ML VIAL IV ONE (03:30)
[2024-07-20] MEDS: DICYCLOMINE HCL 10 MG CAP PO ONE (03:30)
[2024-07-20] MEDS: QUEtiapine FUMARATE 25 MG TAB PO ONE (03:31)
[2024-07-20 03:46] VITALS: BP 127/76; PULSE 64; RESP 18; TEMP 98.7; O2SAT 100
[2024-07-20] MEDS ORDERED: ALBU108A5 INH (03:52)
[2024-07-20 04:29] LABS: Basophils # (auto) 0.1 10 ^3/uL (0-0.2); Eosinophils # (auto) 0 10 ^3/uL (0-0.8); Hematocrit 41.6 % (36.0-46.0); Hemoglobin 14.1 g/dL (12.2-16.2); Lymphocytes # (auto) 1.9 10 ^3/uL (0.4-5.4); Lymphocytes % (auto) 20.4 % (10.0-50.0); Mean Corpuscular Hemoglobin 30.5 pg (28.0-32.0); Mean Corpuscular Volume 89.7 fL (80.0-100.0); Monocytes # (auto) 0.9 10 ^3/uL (0-1.3); Monocytes % (auto) 9.5 % (0.0-12.0); Neutrophils # (auto) 6.3 10 ^3/uL (1.6-8.6); Neutrophils % (auto) 69.1 % (37.0-80.0); Nucleated Red Blood Cells % 0.1 %; Platelet Count (auto) 206 10^3/uL (140-450); Red Blood Cells 4.64 10^6/uL (4.0-5.20); Red Cell Distribution Width 14.6 % (11.8-14.3); White Blood Cell 9.2 10^3/uL (4.4-10.8)
[2024-07-20 04:41] LABS: Chloride 103 mmol/L (98-107); Sodium 140 mmol/L (136-145)
[2024-07-20 04:42] LABS: Anion Gap 9 (5-15); Calcium 9.7 mg/dL (8.7-10.4); Carbon Dioxide 28 mmol/L (20-31)
[2024-07-20 04:47] LABS: BUN/Creatinine Ratio 14.9 (10.0-20.0); Blood Urea Nitrogen 11 mg/dL (9-23)
[2024-07-20 04:50] LABS: Glucose 118 mg/dL (74-106)
[2024-07-20] MEDS: MAGNESIUM SULFATE 1GM/100ML 100 ML IV ONE (05:30)
[2024-07-20] MEDS: D5W/SOD CHLO 0.9% 1,000 ML IV SCH (06:06)
[2024-07-20] MEDS: cefTRIAXone 1GM/50ML D5W 50 ML IV ONE (06:07)
[2024-07-20 06:43] VITALS: BP 148/72; PULSE 82; RESP 16; TEMP 99; O2SAT 99
--- NOTE | 2024-07-20 06:54 | DVH ---
INDICATION: Cystic adnexa tumor TECHNIQUE: Multiple real-time grayscale transabdominal sonographic images along with color and duplex Doppler of the uterus and ovaries were obtained. COMPARISON: CT scan of the abdomen pelvis performed earlier same date. FINDINGS: The uterus measures 6.1 x 3.0 x 4.5 cm. The uterus is homogenous in echotexture. The endome trial stripe measures 0.4 cm. The right ovary measures 4.2 x 3.6 x 3.9 cm. There is an anechoic structure measuring 3.7 x 2.8 x 2.7 cm. The left ovary measures 7.1 x 3.8 x 4.2 cm. There is a anechoic structure measuring 4.2 x 3.2 x 3.4 cm. There is a bilobed appearance versus a septation within a single cystic lesion. Subsequent color and duplex Doppler interrogation of the ovaries demonstrated symmetric vascular flow to both ovaries. No free fluid in the cul-de-sac. IMPRESSION: 1. Bilateral cystic adnexal structures. Contrast-enhanced MRI of the pelvis may be obtained for furth er evaluation. Pelvic ultrasound also recommended in 6 weeks to assess for any interval change. 2. No ovarian torsion.
[2024-07-20 09:00] VITALS: BP_SYST 130; BP_SYST 131; BP_DIAS 61; BP_DIAS 76; PULSE 61; PULSE 81; RESP 17; RESP 18; TEMP 97.5; TEMP 98.6; O2SAT 95; O2SAT 98
[2024-07-20] MEDS: ENOXAPARIN SOD 40 MG/0.4 ML SYRINGE SC SCH (09:05)
[2024-07-20] MEDS: QUEtiapine FUMARATE 25 MG TAB PO SCH (09:08)
[2024-07-20 10:29] LABS: INR 1.03 (0.9-1.15); Partial Thromboplastin Time 28.3 SEC (24.5-34.5); Prothrombin Time 10.9 sec (9.3-11.8)
[2024-07-20 10:40] LABS: T3 Total 1.08 ng/mL (0.60-1.81)
--- NOTE | 2024-07-20 11:34 | DVHPNRES ---
Progress Note Date Seen: Jul 20, 2024 Resident Creating Document: JONN DUPONT RESIDENT Medical Necessity Reason Pt with a Central, PICC or Fol: No Subjective Review of Systems Ms Strauss is a 44-year-old female patient with past medical history of esophagitis, colon polyp, hemorrhoids, neuropathic pain, bipolar disorder, asthma, hypertension who presents to the ER with a chief complaint of dysphagia for solids, intractable nausea and vomiting for the past 4 days. She has been experiencing dysphagia for solids for the past 4 years which has been progressing. Denies weight loss. Reports eating only soft foods including yogurt. Patient reports that 4 days back, she suddenly started throwing up and could not keep any solid or liquid food down. She had an episode of vomiting 07/19 when she vomited the large blood clot which was fresh red per patient. Reports hematochezia, blood at the toilet paper after wiping. She had a EGD 10 years back which showed esophagitis. She does not take any medication except oxycodone. She was recently scheduled for EGD and colonoscopy but says that she can not be NPO for more than 4 hours otherwise she becomes nauseous. She has been experiencing nausea and vomiting every 6 weeks for the past 4 years, along with intermittent diarrhea and constipation. Past medical history: See above Past surgical history: Noncontributory PCP: Has a PCP but does not follow up, sees Dr. Miguel (psychiatrist) Home medications: Reports taking oxycodone. Denies taking any psych medications as she can not swallow pills. Patient seen and examined at the bedside. No abdominal tenderness. Full liquid diet for now. GI consulted. Objective vital signs Vital Sign Date Time Temp Pulse Resp B/P (MAP) Pulse Ox O2 Delivery O2 Flow Rate FiO2 07/20/24 09:00 98.6 81 17 130/76 (94) 98 98.6 07/19/24 23:49 Room Air* 0 21 Total Intake and Output 07/19/24 07/19/24 07/20/24 15:00 23:00 07:00 Intake Total 1350 ml Balance 1350 ml medications Current Medications Medications Dose Ordered Sig/Bridgette Route Start Time Stop Time Status Last Admin Dose Admin Acetaminophen 650 mg Q6HP PRN PO 07/20/24 03:00 Acetaminophen/ Hydrocodone Bitart 1 tab Q4HP PRN PO 07/20/24 03:00 Ondansetron HCl 4 mg Q4HP PRN IV 07/20/24 03:00 Enoxaparin Sodium 40 mg DAILY SC 07/20/24 10:00 07/20/24 09:05 40 MG Dicyclomine HCl 20 mg QID PRN PO 07/20/24 03:00 Ondansetron HCl 4 mg Q4HPRN PRN IV 07/20/24 03:00 Quetiapine Fumarate 25 mg BID PO 07/20/24 10:00 Dextrose/Sodium Chloride 1,000 ml @ 100 mls/hr Q10H IV 07/20/24 05:15 07/20/24 06:06 100 MLS/HR Metronidazole 100 ml @ 100 mls/hr Q8HR IV 07/20/24 14:00 Ceftriaxone Sodium 50 ml @ 100 mls/hr DAILY@09 IV 07/21/24 09:00 Examination Patient lying in bed, in no acute distress General: Well-built, afebrile, palor, mucosae are moist Cardiovascular: Regular S1 and S2. No murmurs, gallops or rubs. No JVD elevation. No pedal edema Respiratory: Normal B/L air entry on room air. Clear lung sounds on auscultation Abdomen: Soft, nontender, nondistended, normoactive bowel sounds, no rebound tenderness, no organomegaly, no masses Genitourinary: Deferred MSK/skin: Mobilizes 4 limbs. Skin is dry and warm Neurological: No motor, no sensitive deficits, normal speech. Pupils are isocoric and reactive. Psych/Mental Status: A/Ox3 laboratory and microbiology Laboratory Tests 07/20/24 04:21 Test 07/20/24 04:21 Range/Units Serum Glucose 118 H 74-106 mg/dL Labs and/or images reviewed: Labs reviewed by me, Image(s) reviewed by me Problem List/Assessment/Plan Problem List/Assessment/Plan Intractable nausea and vomiting Abdominal pain secondary to colitis Dysphagia to solids secondary to esophagitis Hematemesis Likely IBS Bleeding per rectum secondary to possible hemorrhoids History of hemorrhoids CT scan shows, thickening versus underdistention of the ascending and transverse colon, possible colitis IV ceftriaxone and Flagyl starting 07/19 IV Protonix 40 mg b.i.d. along with Carafate 1 g suspension q.i.d. Full liquid diet GI consulted and pending History of asthma-controlled History of sleep apnea Nebulized treatments p.r.n. CPAP at night Hypertension Monitor DVT prophylaxis, on hold given hematemesis SCDs for now Bipolar depression Patient refused psych eval Patient does not take any medications at home Goals of care discussed with patient for more than 10 ft with, full code status Plan discussed with patient in which all questions have been answered Case discussed with Dr. Bailey Plan discussed with: Patient My Orders My Orders Orders - JONN DUPONT Procedure Category Date Status Time T3 Total LAB 07/20/24 In Process 09:14 Free T4 (Free LAB 07/20/24 In Process Thyroxine) 09:14 Vitamin B12 LAB 07/20/24 In Process 09:14 Drug Screen LAB 07/20/24 Logged 09:14 JONN DUPONT Jul 20, 2024 11:34
[2024-07-20] MEDS ORDERED: ALBUTEROL SULF 2.5 MG/0.5ML(0.5%) NEB SOLN NEB PRN (11:45)
[2024-07-20 12:11] LABS: Free T4 (Free Thyroxine) 1.16 ng/dL (0.89-1.76)
--- NOTE | 2024-07-20 12:17 | DVHINCON2 ---
GI Consult Consult Note GI consult note Date of Consultation: 07/20/2024 Chief Complaint: Hematemesis and colitis Referring Physician: Dr. Pan H&P: 44-year-old female with PMH of asthma, sleep apnea, bipolar and hypertension presented to ER with nausea, vomiting and diarrhea, which started five days ago. Patient's symptoms started with constipation, then had loose stool for two days, about five bowel movements every day, last loose stool three days ago. Now patient is feeling constipated again. No melena. Patient has noticed slight red blood with wiping. Patient admits to history of hemorrhoids. Patient is scheduled for a colonoscopy one-week ago, but patient cancel this since she is unable to stay NPO for procedure No recent antibiotic use. No recent travel per patient Patient complains of abdominal pain usually with bowel movements, on and off for four years Patient also complains of dysphagia on and off for four years. SP EGD four years ago gastro group. Patient admits to weight loss of 140 lb in the last four years. Patient asking to eat regular food and not to be on clear liquid diet at this time SP gastric emptying study one year agoCONCLUSION: Normal gastric emptying as described above. Past Medical History: asthma, sleep apnea, bipolar, and hypertension , neuropathic pain Past Surgical History: Denies Social History: NO smoking, drinking ETOH and use of illegal drugs. Family History: Noncontributory Review of Systems: Constitutional: no fever, chill, weight loss Heart: no chest pain, no chest pressure Lung: no cough, no dyspnea with exertion Abdomen: see HPI Physical exam: General: NAD, AAOX3 Chest: lung quinn clear to auscultation Heart: RRR, no murmur Abdomen: non-distended, no tenderness to palpation, +BS Labs: Labs Test 07/20/24 09:57 07/20/24 04:21 07/19/24 22:30 Range/Units Prothrombin Time 10.9 9.3-11.8 sec Prothrombin Time INR 1.03 0.9-1.15 Activated Partial Thromboplast Time 28.3 24.5-34.5 SEC White Blood Count 9.2 # 4.4-10.8 10^3/uL Red Blood Count 4.64 4.0-5.20 10^6/uL Hemoglobin 14.1 12.2-16.2 g/dL Hematocrit 41.6 36.0-46.0 % Mean Corpuscular Volume 89.7 80.0-100.0 fL Mean Corpuscular Hemoglobin 30.5 28.0-32.0 pg Mean Corpuscular Hemoglobin Concent 34.0 32.0-36.0 g/dL Red Cell Distribution Width 14.6 H 11.8-14.3 % Platelet Count 206 140-450 10^3/uL Mean Platelet Volume 7.8 6.9-10.8 fL Neutrophils (%) (Auto) 69.1 37.0-80.0 % Lymphocytes (%) (Auto) 20.4 10.0-50.0 % Monocytes (%) (Auto) 9.5 0.0-12.0 % Eosinophils (%) (Auto) 0.0 0.0-7.0 % Basophils (%) (Auto) 1.0 0.0-2.0 % Neutrophils # (Auto) 6.3 1.6-8.6 10 ^3/uL Lymphocytes # (Auto) 1.9 0.4-5.4 10 ^3/uL Monocytes # (Auto) 0.9 0-1.3 10 ^3/uL Eosinophils # (Auto) 0 0-0.8 10 ^3/uL Basophils # (Auto) 0.1 0-0.2 10 ^3/uL Nucleated Red Blood Cells 0.1 % Sodium Level 140 136-145 mmol/L Potassium Level 3.0 L 3.5-5.1 mmol/L Chloride Level 103 98-107 mmol/L Carbon Dioxide Level 28 20-31 mmol/L Anion Gap 9 5-15 Blood Urea Nitrogen 11 9-23 mg/dL Creatinine 0.74 0.550-1.02 mg/dL Glomerular Filtration Rate Calc 103 >90 mL/min BUN/Creatinine Ratio 14.9 10.0-20.0 Serum Glucose 118 H 74-106 mg/dL Hemoglobin A1c 5.5 <5.7 % A1C Calcium Level 9.7 8.7-10.4 mg/dL Magnesium Level 1.8 1.6-2.6 mg/dL Vitamin B12 Level 314 211-911 pg/mL Vitamin D 25-Hydroxy 13.1 L 30.0-100 ng/mL Thyroid Stimulating Hormone (TSH) 0.54 L 0.55-4.78 uIU/mL Free Thyroxine (T4) Calculated 1.16 0.89-1.76 ng/dL Total Triiodothyronine (TT3) 1.08 0.60-1.81 ng/mL Total Bilirubin 0.7 0.2-1.0 mg/dL Aspartate Amino Transferase (AST) 24 13-40 U/L Alanine Aminotransferase (ALT) 20 7-40 U/L Alkaline Phosphatase 63 46-116 U/L Total Protein 8.2 5.7-8.2 g/dL Albumin 5.2 H 3.2-4.8 g/dL Lipase 29 12-53 U/L Beta HCG, Quantitative 0.8 L 1.5-4.2 mIU/mL Imaging: CT abdomen pelvis IMPRESSION: Thickening versus underdistention of the ascending and transverse colon. Correlate for possible colitis. Cystic prominence of the bilateral adnexa is now noted. Ultrasound may be obtained to further evaluate. A few other unchanged findings as above. Pelvis ultrasound IMPRESSION: 1. Bilateral cystic adnexal structures. Contrast-enhanced MRI of the pelvis may be obtained for further evaluation. Pelvic ultrasound also recommended in 6 weeks to assess for any interval change. 2. No ovarian torsion. Assessment: Abdominal pain Nausea and vomiting Dysphagia Question GI bleed Colitis History of hemorrhoids Plan: Discussed with Dr. Ha Possible EGD tomorrow discussed with patient, at this time patient does not want EGD to be done Barium swallow recommended, patient is refusing to do this test also Continue with Protonix and Zofran Full liquid diet advance to soft as tolerated We will continue to monitor the patient Possible outpatient GI follow-up recommended for elective procedures to be discussed Plan discussed with patient and RN Thank you for this consult Date of Service: Jul 20, 2024 Billing Provider: MASSIMO MENDEZ Common Visit Codes: CONSULT ONLY Consultation Codes: 37400-[id number] CONSULT <60MIN MASSIMO MENDEZ Jul 20, 2024 12:17
[2024-07-20] MEDS: POTASSIUM CHLORIDE 80 MEQ, LIDOCAINE 1% (LOCAL ANESTH.) 6 ML in SODIUM CHL 0.9% 500 ML IV ONE (12:20)
[2024-07-20 12:56] VITALS: O2SAT 98
[2024-07-20] MEDS: SUCRALFATE 1 GM/10 ML ORAL SUSP PO ONE (12:56)
[2024-07-20 12:57] VITALS: BP 130/76; PULSE 83; RESP 18; TEMP 98.6; O2SAT 98
[2024-07-20] MEDS: metroNIDAZOLE 500MG/100ML 100 ML IV SCH (14:00)
--- NOTE | 2024-07-20 16:50 | DVHDSRES ---
Discharge Summary Date of Admission Resident Creating Document: JONN DUPONT RESIDENT Jul 20, 2024 at 02:54 Date of Discharge: Jul 20, 2024 Labs/Diagnostic Data: Laboratory Results Test 07/20/24 09:57 07/20/24 04:21 07/19/24 22:30 Prothrombin Time 10.9 sec (9.3-11.8) Prothrombin Time INR 1.03 (0.9-1.15) Activated Partial Thromboplast Time 28.3 SEC (24.5-34.5) White Blood Count 9.2 10^3/uL (4.4-10.8) Red Blood Count 4.64 10^6/uL (4.0-5.20) Hemoglobin 14.1 g/dL (12.2-16.2) Hematocrit 41.6 % (36.0-46.0) Mean Corpuscular Volume 89.7 fL (80.0-100.0) Mean Corpuscular Hemoglobin 30.5 pg (28.0-32.0) Mean Corpuscular Hemoglobin Concent 34.0 g/dL (32.0-36.0) Red Cell Distribution Width 14.6 % (11.8-14.3) Platelet Count 206 10^3/uL (140-450) Mean Platelet Volume 7.8 fL (6.9-10.8) Neutrophils (%) (Auto) 69.1 % (37.0-80.0) Lymphocytes (%) (Auto) 20.4 % (10.0-50.0) Monocytes (%) (Auto) 9.5 % (0.0-12.0) Eosinophils (%) (Auto) 0.0 % (0.0-7.0) Basophils (%) (Auto) 1.0 % (0.0-2.0) Neutrophils # (Auto) 6.3 10 ^3/uL (1.6-8.6) Lymphocytes # (Auto) 1.9 10 ^3/uL (0.4-5.4) Monocytes # (Auto) 0.9 10 ^3/uL (0-1.3) Eosinophils # (Auto) 0 10 ^3/uL (0-0.8) Basophils # (Auto) 0.1 10 ^3/uL (0-0.2) Nucleated Red Blood Cells 0.1 % Sodium Level 140 mmol/L (136-145) Potassium Level 3.0 mmol/L (3.5-5.1) Chloride Level 103 mmol/L (98-107) Carbon Dioxide Level 28 mmol/L (20-31) Anion Gap 9 (5-15) Blood Urea Nitrogen 11 mg/dL (9-23) Creatinine 0.74 mg/dL (0.550-1.02) Glomerular Filtration Rate Calc 103 mL/min (>90) BUN/Creatinine Ratio 14.9 (10.0-20.0) Serum Glucose 118 mg/dL (74-106) Hemoglobin A1c 5.5 % A1C (<5.7) Calcium Level 9.7 mg/dL (8.7-10.4) Magnesium Level 1.8 mg/dL (1.6-2.6) Vitamin B12 Level 314 pg/mL (211-911) Vitamin D 25-Hydroxy 13.1 ng/mL (30.0-100) Thyroid Stimulating Hormone (TSH) 0.54 uIU/mL (0.55-4.78) Free Thyroxine (T4) Calculated 1.16 ng/dL (0.89-1.76) Total Triiodothyronine (TT3) 1.08 ng/mL (0.60-1.81) Total Bilirubin 0.7 mg/dL (0.2-1.0) Aspartate Amino Transferase (AST) 24 U/L (13-40) Alanine Aminotransferase (ALT) 20 U/L (7-40) Alkaline Phosphatase 63 U/L (46-116) Total Protein 8.2 g/dL (5.7-8.2) Albumin 5.2 g/dL (3.2-4.8) Lipase 29 U/L (12-53) Beta HCG, Quantitative 0.8 mIU/mL (1.5-4.2) Other Laboratory Tests 07/20/24 04:21 Brief Hx & Hospital Course: Ms Strauss is a 44-year-old female patient with past medical history of esophagitis, colon polyp, hemorrhoids, neuropathic pain, bipolar disorder, asthma, hypertension who presents to the ER with a chief complaint of dysphagia for solids, intractable nausea and vomiting for the past 4 days. She has been experiencing dysphagia for solids for the past 4 years which has been progressing. Denies weight loss. Reports eating only soft foods including yogurt. Patient reports that 4 days back, she suddenly started throwing up and could not keep any solid or liquid food down. She had an episode of vomiting 07/19 when she vomited the large blood clot which was fresh red per patient. Reports hematochezia, blood at the toilet paper after wiping. She had a EGD 10 years back which showed esophagitis. She does not take any medication except oxycodone. She was recently scheduled for EGD and colonoscopy but says that she can not be NPO for more than 4 hours otherwise she becomes nauseous. She has been experiencing nausea and vomiting every 6 weeks for the past 4 years, along with intermittent diarrhea and constipation. Past medical history: See above Past surgical history: Noncontributory PCP: Has a PCP but does not follow up, sees Dr. Miguel (psychiatrist) Home medications: Reports taking oxycodone. Denies taking any psych medications as she can not swallow pills. During the hospitalization, CT scan completed, shows thickening versus underdistention of the ascending and transverse colon, possible colitis. Patient was started on IV ceftriaxone and Flagyl starting 07/19. She was started on,IV Protonix 40 mg b.i.d. along with Carafate 1 g suspension q.i.d. GI was consulted, recommended outpatient EGD. Patient left AMA during ongoing evaluation. Discharge diagnosis Intractable nausea and vomiting Abdominal pain secondary to colitis Dysphagia to solids secondary to esophagitis Hematemesis Likely IBS Bleeding per rectum secondary to possible hemorrhoids History of hemorrhoids History of asthma-controlled History of sleep apnea Hypertension Consults/Reason for consult GI consulted for esophagitis and colitis Condition at Discharge: Undetermined Final Diagnosis/Problems List Intractable nausea and vomiting Abdominal pain secondary to colitis Dysphagia to solids secondary to esophagitis Hematemesis Likely IBS Bleeding per rectum secondary to possible hemorrhoids History of hemorrhoids History of asthma-controlled History of sleep apnea Hypertension Discharge Disposition: AMA Discharge Statement: "Patient was advised to return to the ER or call 911 if any headaches, dizziness, shortness of breath, chest pain, abdominal pain, bleeding, fevers, or worsening of medical condition. Patient was counseled about treatment plan, medications, possible side effects, patientverbalized understanding. All questions were answered to the best of my ability. This discharge took greater then 30 minutes in planning, reviewing documentation, counseling the patient, and discussing with other team members." ASSESSMENT ASSESSMENT Assessment JONN DUPONT RESIDENT Jul 20, 2024 16:50
[2024-07-20] MEDS ORDERED: SUCRALFATE 1 GM/10 ML ORAL SUSP PO SCH (17:00)
[2024-07-20] MEDS ORDERED: PANTOPRAZOLE 40 MG/10 ML VIAL INJ IV SCH (22:00)
[2024-07-21] MEDS ORDERED: cefTRIAXone 1GM/50ML D5W 50 ML IV SCH (09:00)
[2024-07-21] MEDS ORDERED: PANTOPRAZOLE 40 MG/10 ML VIAL INJ IV SCH (10:00)
== END 2024-07-20 14:15 | disposition left against medical advice (07) | DRG 392 ==
LOC: ER 21:27 → OVERFLOW 07-20 02:54
PROVIDERS: ADMIT Internal Medicine; ATTEND Internal Medicine
DX: K52.9 Noninfective gastroenteritis and colitis, unspecified (principal); K64.9 Unspecified hemorrhoids; K20.90 Esophagitis, unspecified without bleeding; J45.909 Unspecified asthma, uncomplicated; I10 Essential (primary) hypertension; F20.9 Schizophrenia, unspecified; F17.210 Nicotine dependence, cigarettes, uncomplicated; F31.9 Bipolar disorder, unspecified; Z87.11 Personal history of peptic ulcer disease; Z53.29 Procedure and treatment not carried out because of patient's decision for other reasons; Z79.899 Other long term (current) drug therapy
CPT/HCPCS: 36415; 74176; 76856; 80048; 80053; 82306; 82607; 83036; 83690; 83735; 84439; 84443; 84480; 84702; 85025; 85610; 85730; 96361; 96374; G0378; J2003; J2405; J2470; J3490